=== PATIENT | male | born 1960 | race Caucasian/White ===

== ENCOUNTER 2018-03-22 13:26 | Emergency (ER) | payer OTHER ==
[2018-03-22] MEDS: IBUPROFEN 600 MG TAB PO (15:11)
[2018-03-22] MEDS: HYDROCODONE/APAP (5/325) TAB PO (15:46)
== END 2018-03-22 16:15 | disposition home or self-care (01) ==
LOC: FTE 13:26
DX: S52.125A Nondisplaced fracture of head of left radius, initial encounter for closed fracture (principal); S62.521A Displaced fracture of distal phalanx of right thumb, initial encounter for closed fracture; X58.XXXA Exposure to other specified factors, initial encounter; Y92.9 Unspecified place or not applicable
CPT/HCPCS: 29130; 73080-LT; 73140; 99284-25